=== PATIENT | female | born 1980 | race Caucasian/White ===

== ENCOUNTER 2017-02-24 03:23 | Emergency (ER) | payer BC, MEDICAID, MEDICARE ==
[2017-02-24] MEDS ORDERED: Tetan/Diph/Pertus SYR(Tdap)* 0.5 ML SYR(BOOSTRIX) use SYR IM ONE (04:25)
[2017-02-24] MEDS ORDERED: Acetaminophen TAB* 325 MG PO ONE (04:25)
[2017-02-24 04:44] VITALS: BP 160/80
--- NOTE | 2017-02-27 11:03 | ED ---
Cesar Seay Gabriel, scribed for Lul Monsalve MD on 02/24/17 at 0400 . Adult Trauma - HPI Summary HPI Summary: This patient is a 36 year old F presenting to [facility] with a chief complaint of a laceration on the right knee that occurred as she was walking into the emergency room to see her . The patient rates the pain 2/10 in severity. Patient denies back pain and head trauma. She is able to bear weight. - History of Current Complaint Chief Complaint: EDLacSutureRecheck Stated Complaint: LEG LAC/FALL Time Seen by Provider: 02/24/17 03:47 Hx Obtained From: Patient Mechanism of Injury: Fall Ambulatory at the Scene: Yes Loss of Consciousness: no loss of consciousness Onset/Duration: Still Present Onset of Pain: Immediate Onset Severity: Mild Current Severity: Mild Pain Intensity: 2 Pain Scale Used: 0-10 Numeric Location: Other - left knee Associated Signs & Symptoms: Positive: Negative - head trauma - Allergy/Home Medications Allergies/Adverse Reactions: Allergies Allergy/AdvReac Type Severity Reaction Status Date / Time Codeine AdvReac GI Upset Verified 02/24/17 03:36 PMH/Surg Hx/FS Hx/Imm Hx Endocrine/Hematology History: Denies: Hx Diabetes Respiratory History: Denies: Hx Chronic Obstructive Pulmonary Disease (COPD) History: Denies: Hx Acute Renal Failure Neurological History: Reports: Hx Seizures Infectious Disease History: No Infectious Disease History: Denies: Traveled Outside the [place] in Last 30 Days - Family History Known Family History: Negative: Hypertension Review of Systems Negative: Fever, Chills Negative: Erythema Negative: Sore Throat Negative: Chest Pain Negative: Shortness Of Breath, Cough Negative: Abdominal Pain, Vomiting, Nausea Negative: dysuria, hematuria Positive: Other - Left knee pain . Negative: Myalgia, Edema Positive: Other - laceration on left knee . Negative: Rash Neurological: Negative - dizziness All Other Systems Reviewed And Are Negative: Yes Physical Exam - Summary Physical Exam Summary: Constitutional: Well-developed, Well-nourished, Alert, Cooperative Skin: Warm, Dry, there is 2cm lac on left knee no saloni tenderness HENT: Normocephalic; No Racoons eyes; No battles sign; No abrasion; No contusion ; No hemotympanum; No maxilla facial tenderness or instability; Dentition are smooth; No dental trauma; No trismus Eyes: EOM normal, PERRL Neck: Trachea is midline. No stridor; No JVD; No step off; No posterior cervical spine tenderness Cardio: Rhythm regular, rate normal Heart sounds normal; Intact distal pulses; The pedal pulses are 2+ and symmetric. Radial pulses are 2+ and symmetric. Pulmonary/Chest wall: Effort normal; Breath sounds normal; Equal chest rise; No flail segment; No rib tenderness; No sternal tenderness Abd: Soft, Appearance normal. No distension; No tenderness; No palpable pulsatile mass; No Cullens sign; No Garza-Turners sign Musculoskeletal: Full ROM and no tenderness at hips, ankles, shoulders, elbows and knees; No joint swelling; No vertebral body tenderness; No paraspinal tenderness; No step off or deformity of the spine; Pelvis is stable to lateral compression and rock Neuro: Alert, Oriented x3, Strength 5/5 all extremities. : No blood at urethral meatus Psych: Mood and affect Normal Triage Information Reviewed: Yes Vital Signs On Initial Exam: Initial Vitals Temp Pulse Resp BP Pulse Ox 99.1 F 117 20 176/101 97 02/24/17 03:33 02/24/17 03:33 02/24/17 03:33 02/24/17 03:33 02/24/17 03:33 Vital Signs Reviewed: Yes Procedures - Laceration/Wound Repair 1 Location: Other - left knee Description: Irregular Anesthesia: 1.0% - 3ml , Lido Length, Depth and Shape: 2cm Betadine Prep?: Yes Irrigated w/ Saline (ccs): 1,000 Laceration/Wound Explored: no foreign body removed Debridement: moderate Suture Type: Nylon Number of Sutures: 3 Layer Closure?: No Sterile Dressing Applied?: Yes Diagnostics - Vital Signs Vital Signs Temp Pulse Resp BP Pulse Ox 02/24/17 03:33 99.1 F 117 20 176/101 97 - Laboratory Lab Statement: Any lab studies that have been ordered have been reviewed, and results considered in the medical decision making process. Adult Trauma Course/Dx - Course Assessment/Plan: This patient is a 36 year old F presenting to [facility] with a chief complaint of a laceration on the right knee that occurred as she was walking into the emergency room to see her . The patient rates the pain 2 /10 in severity. Patient denies back pain and head trauma. She is able to bear weight. Patient has not had a tetanus shot in over 10 years, therefore patient was given tetanus shot. Patients laceration repair was tolerated well. She will be discharged and follow up with PCP in 10 days to have the sutures removed. - Diagnoses Provider Diagnoses: Knee laceration Discharge - Discharge Plan Condition: Stable Disposition: HOME Patient Education Materials: Care For Your Stitches (ED), Laceration (ED) Referrals: Jayden Daugherty MD [Primary Care Provider] - 03/06/17 Additional Instructions: Follow up with Dr. Daugherty in 10 days for the sutures to be removed. RETURN TO THE EMERGENCY DEPARTMENT FOR CHANGING OR WORSENING SYMPTOMS. The documentation as recorded by the Cesar ferreira Gabriel accurately reflects the service I personally performed and the decisions made by , Lul Monsalve MD.
== END 2017-02-24 04:45 | disposition home or self-care (01) ==
LOC: ED 03:23
DX: S81.011A Laceration without foreign body, right knee, initial encounter (principal); W19.XXXA Unspecified fall, initial encounter; Y93.01 Activity, walking, marching and hiking; Y92.238 Other place in hospital as the place of occurrence of the external cause; Z23 Encounter for immunization; Z88.5 Allergy status to narcotic agent
CPT/HCPCS: 90471; 90715; 99282; A9270-GY

== ENCOUNTER 2018-01-20 06:48 | Inpatient (IN) | payer MEDICARE, MEDICAID ==
[2018-01-20] MEDS ORDERED: Morphine VIAL* 4 MG/ML VIAL (1 ml vial) IV ONE ×2 (06:57→08:45)
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
[2018-01-20] MEDS ORDERED: Bupivacaine 0.25% SDV* 30 ML INJ ONE (09:07)
[2018-01-20] MEDS ORDERED: KETAMINE HCL* 50 MG/ML 10 ML VIAL IV ONE (09:45)
[2018-01-20] MEDS ORDERED: fentaNYL* 50 MCG/ML 2 ML VIAL (100 MCG VIAL) IV SLOW PU ONE (09:45)
[2018-01-20] MEDS ORDERED: ceFAZolin 2 GM in NS PREMIX(*) 2 GM/100 ML BAG IVPB ONE (10:08)
--- NOTE | 2018-01-20 10:17 | ED ---
Progress - Progress Note Progress Note: Ortho recommended attempt to realign RLE fractures prior to surgery. Conscious sedation to be performed by Dr. Monsalve. Dopplerable pulses on injured side. Discharge - Discharge Plan Patient Education Materials: Procedural Sedation (ED) Referrals: Jayden Daugherty MD [Primary Care Provider] - - Attestation Statements Document Initiated by Scribe: Yes
[2018-01-20] MEDS ORDERED: traMADol TAB* 50 MG PO PRN (10:45)
[2018-01-20] MEDS ORDERED: diPHENhydraMINE PO* 25 MG PO PRN (10:45)
[2018-01-20] MEDS ORDERED: diPHENhydraMINE IV* 50 MG/ML 1 ml VIAL (BENADRYL) IV PRN (10:45)
[2018-01-20] MEDS ORDERED: Ondansetron ODT TAB* 4 MG PO PRN (10:45)
[2018-01-20] MEDS ORDERED: ceFAZolin 2 GM PREMIX in ORs 2 GM/50 ML BAG IVPB ONE ×2 (11:07→17:58)
[2018-01-20 11:24] LABS: ABS Basophils 0 10^3/ul (0-0.2); ABS Eosinophils 0 10^3/ul (0-0.6); ABS Lymphocytes 0.5 10^3/ul (1.0-4.8); ABS Monocytes 0.7 10^3/ul (0-0.8); ABS Neutrophils 16.5 10^3/ul (1.5-7.7); ABS Nucleated RBC 0 10^3/ul; Eosinophil % 0 %; Hematocrit 37 % (35-47); Hemoglobin 12.6 g/dl (12.0-16.0); Lymphocyte % 2.8 %; Mean Corpuscular HGB Conc 34 g/dl (31-36); Mean Corpuscular Hemoglobin 28 pg (27-31); Mean Corpuscular Volume 82 fL (80-97); Mean Platelet Volume 7.9 fL (7.4-10.4); Nucleated Red Blood Cells % 0; Platelet Count 350 10^3/ul (150-450); Red Blood Count 4.57 10^6/ul (4.00-5.40); Red Cell Distribution Width 14 % (10.5-15); White Blood Count 17.7 10^3/ul (3.5-10.8)
--- NOTE | 2018-01-20 11:25 | ED ---
Progress - Progress Note Progress Note: Ortho recommended attempt to realign better before surgery. Procedural sedation note: Procedure: Procedural sedation with reduction of open right ankle fracture Proceduralists: Cira Monsalve MD for sedation, Tito Anna for reduction Indication: Open R ankle fracture Details: Informed consent was obtained, risks including fracture, bleeding, infection, apnea, hypotension, allergic reaction were discussed with the patient and accepted. The patient makes all of her own medical decisions and appeared alert and able to make medical decisions. Respiratory therapy was present for the sedation, emergency airway equipment was immediately available, crash cart was outside the room. Portable suction and capnography were running. Mallampati class I, ASA class II. Preprocedure assessment: Lungs are clear to auscultation, heart sounds were S1 and S2 without murmurs rubs or gallops. Bilaterally the dorsalis pedis pulses were difficult to palpate, but somewhat stronger on the left, able to obtain by Doppler on the right. Contraindications to procedural sedation including sleep apnea or asthma or prior adverse event during anesthesia. The patient tolerated 160 mg of IV ketamine 50 g of IV fentanyl well, she did require supplemental oxygen in the middle of the procedure after reduction. Ventilation was excellent throughout the sedation waveform capnography. The patient emerged uneventfully from procedural sedation. Nursing remained at bedside throughout recovery. Patient is neurovascularly intact both prior and post reduction attempt. - EKG/XRAY/CT EKG: NSR - rate of 93 BPM, no STEMI Course/Dx - Course Course Of Treatment: Ortho recommended attempt to realign better before surgery. Procedural sedation note: Procedure: Procedural sedation with reduction of open right ankle fracture. Proceduralists: Cira Monsalve MD for sedation, Tito Anna for reduction. Indication: Open R ankle fracture. Details : Informed consent was obtained, risks including fracture, bleeding, infection , apnea, hypotension, allergic reaction were discussed with the patient and accepted. The patient makes all of her own medical decisions and appeared alert and able to make medical decisions. Respiratory therapy was present for the sedation, emergency airway equipment was immediately available, crash cart was outside the room. Portable suction and capnography were running. Mallampati class I, ASA class II. Preprocedure assessment: Lungs are clear to auscultation, heart sounds were S1 and S2 without murmurs rubs or gallops. Bilaterally the dorsalis pedis pulses were difficult to palpate, but somewhat stronger on the left, able to obtain by Doppler on the right. Contraindications to procedural sedation including sleep apnea or asthma or prior adverse event during anesthesia. The patient tolerated 160 mg of IV ketamine 50 g of IV fentanyl well, she did require supplemental oxygen in the middle of the procedure after reduction. Ventilation was excellent throughout the sedation waveform capnography. The patient emerged uneventfully from procedural sedation. Nursing remained at bedside throughout recovery. Patient is neurovascularly intact both prior and post reduction attempt. EKG taken at 1115 showed rate of 93 BPM, NSR. Patient will be admitted for surgery. - Diagnoses Provider Diagnoses: Open fracture of distal end of fibula and tibia - Provider Notifications Instructed by Provider To: MD Will See In ED - Lore Alexander PA-C to see in the ED, Norma made aware of patient and discussed case - will take to OR this afternoon Discharge - Sign-Out/Discharge Documenting (check all that apply): Patient Departure - admit - Discharge Plan Condition: Fair Disposition: ADMITTED TO [facility] Patient Education Materials: Leg Fracture (ED), Procedural Sedation (ED) Referrals: Jayden Daugherty MD [Primary Care Provider] - - Attestation Statements Document Initiated by Scribe: Yes Documenting Scribe: JACQUES WHITE Provider For Whom Scribe is Documenting (Include Credential): SUE MONSALVE MD Scribe Attestation: JACQUES Seay , scribed for SUE MONSALVE MD on 01/20/18 at 1128. Status of Scribe Document: Ready
[2018-01-20 11:29] LABS: INR 0.96 (0.77-1.02)
[2018-01-20 11:40] LABS: EGFR Non-African American 94.7 (>60)
[2018-01-20] MEDS: Morphine VIAL* 4 MG/ML VIAL (1 ml vial) IV PRN ×3 (11:58→16:03)
[2018-01-20] MEDS: Ondansetron INJ* 2 MG/ML VIAL IV PRN (11:58)
[2018-01-20] MEDS ORDERED: Scopolamine 1.5 mg* PATCH ONE (14:02)
[2018-01-20] MEDS: Scopolamine 1.5 mg* PATCH TRANSDERM SCH (14:03)
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
--- NOTE | 2018-01-20 17:43 | PN ---
Progress Note - Progress Note Date of Service: 01/20/18 Note: Pt seen and examined. Closed distal tib/fib fracture tenting skin. Plan for ORIF R tibia. Consent signed and in chart. H and P reviewed.
[2018-01-20] MEDS ORDERED: fentaNYL* 50 MCG/ML 2 ML VIAL (100 MCG VIAL) ONE ×2 (17:48→19:10)
[2018-01-20] MEDS ORDERED: Midazolam* 1 MG/ML 5 ML VIAL (5 MG) ONE ×2 (17:49→18:53)
--- NOTE | 2018-01-20 17:54 | PN ---
Progress Note - Progress Note Date of Service: 01/20/18 Note: Reviewing of notes demonstrated that the fracture was open specifically a poke hole. Grade 1. This was not relayed to myself and not discussed at any point. When consult was made, the question was asked multiple times and the answer was no to an open fracture. She did not get antibiotics. Will give abx stat now and planning for surgery as soon as able in the OR.
[2018-01-20] MEDS ORDERED: Lidocaine 1%* 5 ML VIAL ONE ×2 (18:14→19:06)
[2018-01-20] MEDS ORDERED: Bupivacaine 0.25% SDV PF* 10 ML VIAL INJ ONE (18:31)
[2018-01-20] MEDS ORDERED: Bupivacaine-MPF SPINAL* 7.5 MG/ML - 2ML AMP ONE (18:53)
[2018-01-20] MEDS ORDERED: Propofol* 10 MG/ML 20 ML BTL ONE (19:39)
[2018-01-20] MEDS ORDERED: Magnesium Hydroxide LIQ* 30 ML UDC PO PRN (21:00)
[2018-01-20] MEDS ORDERED: oxyCODONE/Acetamin 5/325 MG* TAB PO PRN ×3 (21:00→21:03)
[2018-01-20] MEDS ORDERED: fentaNYL* 50 MCG/ML 2 ML VIAL (100 MCG VIAL) IV PRN (21:03)
[2018-01-20] MEDS ORDERED: Ondansetron INJ* 2 MG/ML VIAL IV PRN (21:03)
[2018-01-20] MEDS ORDERED: Naloxone* 0.4 MG/ML 1 ML VIAL IV PRN (21:03)
[2018-01-20] MEDS ORDERED: HYDROmorphone INJ1* 1 MG/ML SYRINGE IV PRN (21:03)
[2018-01-20] MEDS ORDERED: Ketorolac INJ* 30 MG/ML 1 ML VIAL IV PRN (21:03)
[2018-01-21] MEDS: Morphine VIAL* 4 MG/ML VIAL (1 ml vial) IV PRN (01:42)
[2018-01-21] MEDS: ceFAZolin* 2 GM* Q8H (Duplex) IVPB SCH ×3 (03:21→20:26)
[2018-01-21] MEDS: Ondansetron INJ* 2 MG/ML VIAL IV PRN (04:07)
[2018-01-21 09:03] LABS: ABS Basophils 0 10^3/ul (0-0.2); ABS Eosinophils 0 10^3/ul (0-0.6); ABS Lymphocytes 0.7 10^3/ul (1.0-4.8); ABS Monocytes 0.7 10^3/ul (0-0.8); ABS Neutrophils 7.8 10^3/ul (1.5-7.7); ABS Nucleated RBC 0 10^3/ul; Eosinophil % 0.1 %; Hematocrit 34 % (35-47); Hemoglobin 11.5 g/dl (12.0-16.0); Lymphocyte % 7.9 %; Mean Corpuscular HGB Conc 34 g/dl (31-36); Mean Corpuscular Hemoglobin 28 pg (27-31); Mean Corpuscular Volume 81 fL (80-97); Mean Platelet Volume 7.8 fL (7.4-10.4); Nucleated Red Blood Cells % 0.3; Platelet Count 307 10^3/ul (150-450); Red Blood Count 4.19 10^6/ul (4.00-5.40); Red Cell Distribution Width 14 % (10.5-15); White Blood Count 9.2 10^3/ul (3.5-10.8)
[2018-01-21 09:20] LABS: EGFR Non-African American 91.6 (>60)
--- NOTE | 2018-01-21 09:28 | PN ---
Progress Note - Progress Note Date of Service: 01/21/18 Note: Pt POD#1 from I and D and ORIF right tibia. Doing ok. Denies numbness or tingling. No SOB or CP. Temp Pulse Resp BP Pulse Ox 98.2 F 96 16 143/76 96 01/21/18 07:04 01/21/18 07:04 01/21/18 07:04 01/21/18 07:04 01/21/18 07:04 NAD. splint intact. toes warm and well perfused. able to flex/ext great toe. brisk cap refill < 2 Laboratory Results - last 24 hr 01/20/18 01/20/18 01/20/18 11:17 11:17 11:17 WBC 17.7 H RBC 4.57 Hgb 12.6 Hct 37 MCV 82 MCH 28 MCHC 34 RDW 14 Plt Count 350 MPV 7.9 Neut % (Auto) 93.1 Lymph % (Auto) 2.8 Humphreys % (Auto) 3.9 Eos % (Auto) 0 Baso % (Auto) 0.2 Absolute Neuts (auto) 16.5 H Absolute Lymphs (auto) 0.5 L Absolute Monos (auto) 0.7 Absolute Eos (auto) 0 Absolute Basos (auto) 0 Absolute Nucleated RBC 0 Nucleated RBC % 0 INR (Anticoag Therapy) 0.96 Sodium 137 Potassium 3.6 Chloride 107 Carbon Dioxide 23 Anion Gap 7 BUN 11 Creatinine 0.69 Est GFR ( Amer) 114.6 Est GFR (Non-Af Amer) 94.7 BUN/Creatinine Ratio 15.9 Glucose 116 H Calcium 8.8 Total Bilirubin 0.40 AST 19 ALT 14 Alkaline Phosphatase 75 Total Protein 6.5 Albumin 3.6 Globulin 2.9 Albumin/Globulin Ratio 1.2 Blood Type Antibody Screen 01/20/18 01/21/18 01/21/18 11:17 08:50 08:50 WBC 9.2 RBC 4.19 Hgb 11.5 L Hct 34 L MCV 81 MCH 28 MCHC 34 RDW 14 Plt Count 307 MPV 7.8 Neut % (Auto) 84.4 Lymph % (Auto) 7.9 Humphreys % (Auto) 7.4 Eos % (Auto) 0.1 Baso % (Auto) 0.2 Absolute Neuts (auto) 7.8 H Absolute Lymphs (auto) 0.7 L Absolute Monos (auto) 0.7 Absolute Eos (auto) 0 Absolute Basos (auto) 0 Absolute Nucleated RBC 0 Nucleated RBC % 0.3 INR (Anticoag Therapy) Sodium 139 Potassium 3.7 Chloride 106 Carbon Dioxide 28 Anion Gap 5 BUN 6 Creatinine 0.71 Est GFR ( Amer) 110.9 Est GFR (Non-Af Amer) 91.6 BUN/Creatinine Ratio 8.5 Glucose 103 H Calcium 9.0 Total Bilirubin AST ALT Alkaline Phosphatase Total Protein Albumin Globulin Albumin/Globulin Ratio Blood Type B Negative Antibody Screen Negative A/P POD#1 from I and D with ORIF of right tibia. NWB ice and elevate post op abx 24 hours ancef dvt ppx while in house. go home with ASA 325 po bid analgesia dispo placement.
[2018-01-21] MEDS: Enoxaparin(*) 40 MG/0.4 ML SYR SUBCUT SCH (09:46)
[2018-01-21] MEDS: Acetaminophen TAB* 325 MG PO PRN (20:25)
[2018-01-21] MEDS: Docusate CAP* 100 MG PO PRN (20:37)
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
[2018-01-22] MEDS: Acetaminophen TAB* 325 MG PO PRN ×2 (08:46→16:14)
[2018-01-22] MEDS: Enoxaparin(*) 40 MG/0.4 ML SYR SUBCUT SCH (08:47)
[2018-01-22] MEDS: Docusate CAP* 100 MG PO PRN (08:50)
--- NOTE | 2018-01-22 12:57 | PN ---
Progress Note - Progress Note Date of Service: 01/22/18 SOAP: Subjective: []Patient seen and examined at bedside. She feels well with well controlled RLE pain. Denies CP, SOB, dizziness, nausea. Objective: []General: Well appearing, NAD RLE: Splint CDI. Able to wiggle exposed toes, sensation intact distally, capillary refill less than two seconds distally Left calf supple and nontender without erythema, edema or palpable cords laceration to right side of head with gabby CDI, no bleeding, no discharge Assessment: []POD#2 from I and D with ORIF of right tibia. Plan: []NWB PT/OT ice and elevate lovenox dvt ppx while in house. go home with ASA 325 po bid Dc to [facility] when bed available Vital Signs Temp 97.5 F 01/22/18 11:00 Pulse 90 01/22/18 11:00 Resp 16 01/22/18 11:00 BP 146/95 01/22/18 11:00 Pulse Ox 98 01/22/18 11:00 Intake & Output 01/21/18 01/22/18 01/22/18 18:59 06:59 18:59 Intake Total 1580 793 700 Output Total 1200 900 160 Balance 380 -107 540 Intake: IV Fluids 1225 13 LR 1225 13 IVPB 55 60 ABX - CEFAZOLIN 55 60 Oral 300 720 700 Output: Urine 1200 900 160 Other: Estimated Void Large Small # Voids 1 1 Laboratory Last Values WBC 9.2 10^3/ul (3.5-10.8) 01/21/18 08:50 RBC 4.19 10^6/ul (4.00-5.40) 01/21/18 08:50 Hgb 11.5 g/dl (12.0-16.0) L 01/21/18 08:50 Hct 34 % (35-47) L 01/21/18 08:50 MCV 81 fL (80-97) 01/21/18 08:50 MCH 28 pg (27-31) 01/21/18 08:50 MCHC 34 g/dl (31-36) 01/21/18 08:50 RDW 14 % (10.5-15) 01/21/18 08:50 Plt Count 307 10^3/ul (150-450) 01/21/18 08:50 MPV 7.8 fL (7.4-10.4) 01/21/18 08:50 Neut % (Auto) 84.4 % 01/21/18 08:50 Lymph % (Auto) 7.9 % 01/21/18 08:50 [place] % (Auto) 7.4 % 01/21/18 08:50 Eos % (Auto) 0.1 % 01/21/18 08:50 Baso % (Auto) 0.2 % 01/21/18 08:50 Absolute Neuts (auto) 7.8 10^3/ul (1.5-7.7) H 01/21/18 08:50 Absolute Lymphs (auto) 0.7 10^3/ul (1.0-4.8) L 01/21/18 08:50 Absolute Monos (auto) 0.7 10^3/ul (0-0.8) 01/21/18 08:50 Absolute Eos (auto) 0 10^3/ul (0-0.6) 01/21/18 08:50 Absolute Basos (auto) 0 10^3/ul (0-0.2) 01/21/18 08:50 Absolute Nucleated RBC 0 10^3/ul 01/21/18 08:50 Nucleated RBC % 0.3 01/21/18 08:50 INR (Anticoag Therapy) 0.96 (0.77-1.02) 01/20/18 11:17 Sodium 139 mmol/L (135-145) 01/21/18 08:50 Potassium 3.7 mmol/L (3.5-5.0) 01/21/18 08:50 Chloride 106 mmol/L (101-111) 01/21/18 08:50 Carbon Dioxide 28 mmol/L (22-32) 01/21/18 08:50 Anion Gap 5 mmol/L (2-11) 01/21/18 08:50 BUN 6 mg/dL (6-24) 01/21/18 08:50 Creatinine 0.71 mg/dL (0.51-0.95) 01/21/18 08:50 Est GFR ( Amer) 110.9 (>60) 01/21/18 08:50 Est GFR (Non-Af Amer) 91.6 (>60) 01/21/18 08:50 BUN/Creatinine Ratio 8.5 (8-20) 01/21/18 08:50 Glucose 103 mg/dL (70-100) H 01/21/18 08:50 Calcium 9.0 mg/dL (8.6-10.3) 01/21/18 08:50 Total Bilirubin 0.40 mg/dL (0.2-1.0) 01/20/18 11:17 AST 19 U/L (13-39) 01/20/18 11:17 ALT 14 U/L (7-52) 01/20/18 11:17 Alkaline Phosphatase 75 U/L (34-104) 01/20/18 11:17 Total Protein 6.5 g/dL (6.4-8.9) 01/20/18 11:17 Albumin 3.6 g/dL (3.2-5.2) 01/20/18 11:17 Globulin 2.9 g/dL (2-4) 01/20/18 11:17 Albumin/Globulin Ratio 1.2 (1-3) 01/20/18 11:17 Blood Type B Negative 01/20/18 11:17 Antibody Screen Negative 01/20/18 11:17
[2018-01-23] MEDS: Acetaminophen TAB* 325 MG PO PRN (09:33)
[2018-01-23] MEDS: Enoxaparin(*) 40 MG/0.4 ML SYR SUBCUT SCH (09:34)
--- NOTE | 2018-01-23 10:08 | PN ---
Progress Note - Progress Note Date of Service: 01/23/18 SOAP: Subjective: []Patient seen OOB in chair, pain well managed RLE. Denies SOB, CP, palpitations or nausea. Objective: [] Vital Signs Temp 97.4 F 01/23/18 07:28 Pulse 94 01/23/18 07:28 Resp 16 01/23/18 07:28 BP 114/78 01/23/18 07:28 Pulse Ox 97 01/23/18 07:28 Intake & Output 01/22/18 01/23/18 01/23/18 18:59 06:59 18:59 Intake Total 700 930 Output Total 510 900 300 Balance 190 30 -300 Intake: Oral 700 930 Output: Urine 510 900 300 Other: Estimated Void Small # Voids 1 Splint/ dressings RLE dry and intact Wiggles toes, + edema dorsal foot sensation intact distally Assessment: []s/p ORIF right tib/fib fracture POD #3 Plan: []PT/OT NWB RLE Ice and elevate RLE while in bed Await insurance approval for discharge to [facility] rehab, will be made swing bed status 01/23
[2018-01-23 11:23] VITALS: BP 127/85
[2018-01-23] MEDS ORDERED: Scopolamine PATCH Remove* 1 NOTE MISC PATCH OFF SCH (14:00)
[2018-01-23] MEDS: Scopolamine 1.5 mg* PATCH TRANSDERM SCH (14:12)
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
== END 2018-01-23 14:46 | disposition swing bed (61) | DRG 494 ==
LOC: ED 06:48 → SSU 10:46
PROVIDERS: ADMIT Orthopaedic Surgery; ATTEND Orthopaedic Surgery
PROC: 0QSG04Z Reposition Right Tibia with Internal Fixation Device, Open Approach (ICD-10-PCS; 2018-01-20)
PROC: 0HQ0XZZ Repair Scalp Skin, External Approach (ICD-10-PCS; 2018-01-20)
PROC: 2W5 Placement, Anatomical Regions, Removal (ICD-10-PCS; 2018-01-20)
PROC: 2W3LX1Z Immobilization of Right Lower Extremity using Splint (ICD-10-PCS; principal; 2018-01-20 16:00)
DX: S82.301A Unspecified fracture of lower end of right tibia, initial encounter for closed fracture (principal); S01.91XA Laceration without foreign body of unspecified part of head, initial encounter; W18.02XA Striking against glass with subsequent fall, initial encounter; G80.9 Cerebral palsy, unspecified; S82.831A Other fracture of upper and lower end of right fibula, initial encounter for closed fracture; I10 Essential (primary) hypertension; Y93.01 Activity, walking, marching and hiking; Y92.410 Unspecified street and highway as the place of occurrence of the external cause; Z98.51 Tubal ligation status; V89.2XXA Person injured in unspecified motor-vehicle accident, traffic, initial encounter; Z88.5 Allergy status to narcotic agent; Z88.8 Allergy status to other drugs, medicaments and biological substances; Z91.048 Other nonmedicinal substance allergy status; Z82.49 Family history of ischemic heart disease and other diseases of the circulatory system; Z79.01 Long term (current) use of anticoagulants
CPT/HCPCS: 36415; 70450; 76000; 80048; 80053; 85025; 85610; 86850; 86900; 86901; 90686; 93005; 99284; A9270-GY; C1713; C1776; G8978-GP-CK; G8979-GP-CI; G8987-GO-CL; G8988-GO-CI; J0690; J1650; J2250; J2270; J2405; J2704; J3010; J3490

== ENCOUNTER 2018-01-23 13:24 | Inpatient (IN) | payer MEDICARE, MEDICAID ==
[2018-01-23] MEDS ORDERED: diPHENhydraMINE PO* 25 MG PO PRN (13:55)
[2018-01-23] MEDS ORDERED: oxyCODONE/Acetamin 5/325 MG* TAB PO PRN (13:55)
[2018-01-23] MEDS ORDERED: traMADol TAB* 50 MG PO PRN (13:55)
[2018-01-23] MEDS ORDERED: Ondansetron ODT TAB* 4 MG PO PRN (13:55)
[2018-01-23] MEDS ORDERED: Enoxaparin(*) 40 MG/0.4 ML SYR SUBCUT SCH (14:00)
[2018-01-23] MEDS ORDERED: Docusate CAP* 100 MG PO PRN (14:01)
[2018-01-23] MEDS ORDERED: Magnesium Hydroxide LIQ* 30 ML UDC PO PRN (14:01)
[2018-01-23] MEDS: Acetaminophen TAB* 325 MG PO PRN (15:35)
[2018-01-24] MEDS: Acetaminophen TAB* 325 MG PO PRN ×2 (05:55→21:51)
[2018-01-24] MEDS: Enoxaparin(*) 40 MG/0.4 ML SYR SUBCUT SCH (09:41)
--- NOTE | 2018-01-24 11:44 | PN ---
Progress Note - Progress Note Date of Service: 01/24/18 Note: Pt seen and examined. Doing well. Pain controlled. Awaiting SNF placement Temp Pulse Resp BP Pulse Ox 97.8 F 86 16 116/86 98 01/24/18 07:25 01/24/18 07:25 01/24/18 09:00 01/24/18 07:25 01/24/18 07:25 NAD. pleasant and talkative. AAOx3 RLE: dressing in place. flex/ext toes, brisk cap refill. A/P POD#4 from ORIF medial tibial NWB analgesia placement pending will see in 10 days in office
[2018-01-25] MEDS: Acetaminophen TAB* 325 MG PO PRN (05:36)
[2018-01-25] MEDS: Enoxaparin(*) 40 MG/0.4 ML SYR SUBCUT SCH (08:45)
[2018-01-26] MEDS: Acetaminophen TAB* 325 MG PO PRN (00:29)
[2018-01-26 07:46] VITALS: BP 120/67
[2018-01-26] MEDS: Enoxaparin(*) 40 MG/0.4 ML SYR SUBCUT SCH (08:16)
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
== END 2018-01-26 13:30 | DRG 563 ==
LOC: SSU 13:55
PROVIDERS: ADMIT Orthopaedic Surgery; ATTEND Orthopaedic Surgery
DX: S82.491B Other fracture of shaft of right fibula, initial encounter for open fracture type I or II (principal); S82.301B Unspecified fracture of lower end of right tibia, initial encounter for open fracture type I or II; G80.9 Cerebral palsy, unspecified; S01.01XA Laceration without foreign body of scalp, initial encounter; V03.10XA Pedestrian on foot injured in collision with car, pick-up truck or van in traffic accident, initial encounter; Y92.410 Unspecified street and highway as the place of occurrence of the external cause
CPT/HCPCS: A9270-GY; G8978-GP-CL; G8979-GP-CI; G8987-GO-CL; G8988-GO-CI; J1650

== ENCOUNTER 2018-09-05 05:11 | Emergency (ER) | payer MEDICAID, MEDICARE ==
[2018-09-05] MEDS ORDERED: NS 0.9% 1000 ML** 1,000 ML IV ONE ×2 (05:32)
[2018-09-05] MEDS ORDERED: Ondansetron INJ* 2 MG/ML VIAL IV ONE ×2 (05:32)
[2018-09-05] MEDS ORDERED: Al Hydrox/Mg Hydrox/Simet LIQ* 30 ML UDC PO ONE ×2 (05:49)
[2018-09-05] MEDS ORDERED: Lidocaine 2% VISCOUS* 15 ML UDC PO ONE ×2 (05:49)
--- NOTE | 2018-09-05 05:52 | ED ---
Abdominal Pain/Female - HPI Summary HPI Summary: Patient is a 38-year-old female who presents emergency Department with upper abdominal pain and vomiting since last night. Pt. denies diarrhea, CP, SOB, cough, urinary sxs. Pt. has a hx of cerebral palsy. Denies abd. surgery. Sxs are moderate in severity. No current modifying factors. Pt. notes she has been having acid reflux lately and has been taking Tums. - History of Current Complaint Chief Complaint: EDNauseaVomitDiarrh Stated Complaint: ABD PAIN PER EMS Time Seen by Provider: 09/05/18 05:37 Hx Obtained From: Patient, Family/Paradi Operator Pain Intensity: 9 Allergies/Adverse Reactions: Allergies Allergy/AdvReac Type Severity Reaction Status Date / Time adhesive Allergy Rash Verified 09/05/18 05:24 codeine AdvReac GI Upset Verified 09/05/18 05:24 Home Medications: Home Medications Acetaminophen TAB* [Tylenol TAB*] 325 mg PO Q4H PRN 09/05/18 [History Confirmed 09/05/18] Aspirin TAB* [Aspirin 325 MG TAB*] 650 mg PO Q6H PRN 09/05/18 [History Confirmed 09/05/18] diPHENhydraMINE PO* [Benadryl PO 25 MG TAB*] 25 mg PO BEDTIME PRN 09/05/18 [ History Confirmed 09/05/18] PMH/Surg Hx/FS Hx/Imm Hx Previously Healthy: Yes Endocrine/Hematology History: Denies: Hx Diabetes Respiratory History: Denies: Hx Chronic Obstructive Pulmonary Disease (COPD) History: Denies: Hx Acute Renal Failure Musculoskeletal History: Reports: Hx Scoliosis, Other Musculoskeletal History - cerebral palsy Sensory History: Reports: Hx Contacts or Glasses - Pt has but does not use, Hx Eye Prosthesis - L glass eye Denies: Hx Hearing Aid Opthamlomology History: Reports: Hx Contacts or Glasses - Pt has but does not use, Hx Eye Prosthesis - L glass eye Neurological History: Reports: Hx Seizures Comment Only: Other Neuro Impairments/Disorders - Cerebal palsy - Surgical History Surgery Procedure, Year, and Place: tubal, eye. ORIF R ankle Hx Anesthesia Reactions: No Infectious Disease History: No Infectious Disease History: Denies: Traveled Outside the [place] in Last 30 Days - Family History Known Family History: Positive: Non-Contributory Negative: Hypertension - Social History Occupation: Employed Part-time Lives: With Family Alcohol Use: None Hx Substance Use: No Substance Use Type: Reports: None Hx Tobacco Use: No Smoking Status (MU): Never Smoked Tobacco Review of Systems Constitutional: Negative Negative: Fever, Chills Cardiovascular: Negative Negative: Palpitations, Chest Pain Respiratory: Negative Negative: Shortness Of Breath, Cough Positive: Abdominal Pain, Vomiting, Nausea. Negative: Diarrhea Genitourinary: Negative Negative: dysuria Neurological: Negative All Other Systems Reviewed And Are Negative: Yes Physical Exam Triage Information Reviewed: Yes Vital Signs On Initial Exam: Initial Vitals Temp Pulse Resp BP Pulse Ox 98.3 F 74 16 161/121 97 09/05/18 05:15 09/05/18 05:15 09/05/18 05:15 09/05/18 05:15 09/05/18 05:15 Vital Signs Reviewed: Yes Appearance: Positive: Well-Appearing - Pt. sitting up in bed in NAD. Family member present. Appears uncomfortable but nontoxic. Skin: Positive: Warm, Dry Head/Face: Positive: Normal Head/Face Inspection Eyes: Positive: Other: - Prosthetic left eye Neck: Positive: Supple Respiratory/Lung Sounds: Positive: Clear to Auscultation, Breath Sounds Present Cardiovascular: Positive: Normal, RRR Abdomen Description: Positive: Other: - Obese. Abd. is soft with pain to epigastric region without rebound tenderness or guarding. Neurological: Positive: Normal, Alert, Oriented to Person Place, Time Psychiatric: Positive: Affect/Mood Appropriate Diagnostics - Vital Signs Vital Signs Temp Pulse Resp BP Pulse Ox 09/05/18 05:33 195/117 09/05/18 05:15 98.3 F 74 16 161/121 97 - Laboratory Result Diagrams: 09/05/18 05:45 09/05/18 05:45 Lab Statement: Any lab studies that have been ordered have been reviewed, and results considered in the medical decision making process. Abdominal Pain Fem Course/Dx - Course Course Of Treatment: Pt. presenting for epigastric pain and vomiting. Afebrile. BP elevated. Pt. dry heaving. Given zofran and IV fluids. Did attempted GI cocktail after zofran but pt. did not tolerate. Shortly after medication administration pt. fell asleep. Labs show leukocytosis of 15. CT ordered for further evaluation. CT scan per radiology: IMPRESSION: #. Normal appendix documented. #. Suggestion of mild peripancreatic inflammatory change at the level of the pancreatic head and uncinate process. Correlate for potential acute pancreatitis or possibly. duodenitis. #. Small volume of ascites at the cul-de-sac through RIGHT lower quadrant. Normal Lipase. On re-exam pt. is feeling much better. Will dc home to . with PCP. Will start on protonix for suspected GERD. Advised pt. to . with her PCP for BP recheck. Discussed foods to avoid. Will return to ER if sxs change or worsen. Pt. understands and agrees with plan. - Diagnoses Differential Diagnosis: Positive: Appendicitis, Bowel Obstruction, Constipation , Gall Bladder Disease, Hepatitis, Pancreatitis, Peptic Ulcer Disease, Urinary Tract Infection Provider Diagnoses: Nausea & vomiting, Abdominal pain Discharge - Sign-Out/Discharge Documenting (check all that apply): Patient Departure Patient Received Moderate/Deep Sedation with Procedure: No - Discharge Plan Condition: Improved Disposition: HOME Prescriptions: Ondansetron TAB* [Zofran 4 MG Tab*] 4 mg PO Q6H PRN #12 tab PRN Reason: Nausea Pantoprazole TAB * [Protonix TAB*] 40 mg PO DAILY #30 tab Patient Education Materials: Gastroesophageal Reflux Disease (ED), Abdominal Pain (ED) Referrals: Jayden Daugherty MD [Primary Care Provider] - Additional Instructions: Call your PCP Friday for a close follow up appointment and blood pressure recheck Take medication as directed Avoid foods with grease/fat, acid, spice, caffeine Return to ER if symptoms change or worsen - Billing Disposition and Condition Condition: IMPROVED Disposition: Home
[2018-09-05 05:55] LABS: Urine Appearance Turbid; Urine Bacteria Absent (Absent); Urine Bilirubin Negative (Negative); Urine Blood Negative (Negative); Urine Color Yellow; Urine Glucose Negative (Negative); Urine Ketones 1+ (Negative); Urine Nitrite Negative (Negative); Urine Protein Negative (Negative); Urine Red Blood Cell 2+(6-10/hpf) (Absent); Urine Specific Gravity 1.014 (1.010-1.030); Urine Squamous Epithelial Cell Present (Absent); Urine Urobilinogen Negative (Negative); Urine White Blood Cell 1+(6-10/hpf) (Absent)
[2018-09-05 05:56] LABS: ABS Eosinophils 0.1 10^3/ul (0-0.6); ABS Lymphocytes 0.7 10^3/ul (1.0-4.8); ABS Monocytes 0.3 10^3/ul (0-0.8); ABS Neutrophils 14.5 10^3/ul (1.5-7.7); Eosinophil % 0.4 %; Hematocrit 40 % (35-47); Hemoglobin 13.6 g/dL (12.0-16.0); Lymphocyte % 4.3 %; Mean Corpuscular HGB Conc 34 g/dL (31-36); Mean Corpuscular Hemoglobin 27 pg (27-31); Mean Corpuscular Volume 79 fL (80-97); Mean Platelet Volume 8.6 fL (7.4-10.4); Platelet Count 355 10^3/uL (150-450); Red Blood Count 5.13 10^6 /uL (3.70-4.87); Red Cell Distribution Width 15 % (10-15); White Blood Count 15.5 10^3/uL (3.5-10.8)
[2018-09-05 06:25] LABS: ALT 11 U/L (7-52); AST 15 U/L (13-39); Albumin 3.9 g/dL (3.2-5.2); Albumin/Globulin Ratio 1.1 (1-3); Alkaline Phosphatase 105 U/L (34-104); Anion Gap 9 mmol/L (2-11); BUN/Creatinine Ratio 16.9 (8-20); Blood Urea Nitrogen 13 mg/dL (6-24); CO2 Carbon Dioxide 26 mmol/L (22-32); Chloride 104 mmol/L (101-111); EGFR African American 100.5 (>60); Globulin 3.6 g/dL (2-4); Glucose 171 mg/dL (70-100); Potassium 3.6 mmol/L (3.5-5.0); Sodium 139 mmol/L (135-145); Total Protein 7.5 g/dL (6.4-8.9)
[2018-09-05 06:30] LABS: HCG Pregnancy < 0.60 mIU/mL
[2018-09-05] MEDS ORDERED: Iohexol 300* (CONTRAST) 10 ML SDV IV ONE (06:46)
[2018-09-05 08:52] VITALS: BP 152/94
== END 2018-09-05 08:51 | disposition home or self-care (01) ==
LOC: ED 05:11
DX: R10.10 Upper abdominal pain, unspecified (principal); R11.2 Nausea with vomiting, unspecified; Z79.82 Long term (current) use of aspirin; Z79.899 Other long term (current) drug therapy; Z88.5 Allergy status to narcotic agent
CPT/HCPCS: 36415; 74177; 80053; 81003; 81015; 83690; 84702; 85025; 87086; 96361; 96374; 99283; A9270-GY; J2405; Q9967